=== PATIENT | female | born 1985 | race Caucasian/White ===

== ENCOUNTER → 2018-05-22 | Outpatient (CLI) | payer OTHER ==
--- NOTE | 2018-05-22 13:33 | XR ---
EXAMINATION TYPE: XR hand complete RT DATE OF EXAM: 05/22/2018 COMPARISON: NONE HISTORY: Pain TECHNIQUE: Three views are submitted. FINDINGS: The osseous structures are intact. The joint spaces are preserved and there is no acute fracture or dislocation. Soft tissue injury involving the third digit IMPRESSION: 1. No definite acute fracture or dislocation if symptoms persist, follow-up study in 7 to 10 days wo uld be suggested
== END | disposition home or self-care (01) ==
LOC: RADXRMAIN 13:08
PROVIDERS: ATTEND Emergency Medicine
DX: S67.192A Crushing injury of right middle finger, initial encounter (principal)

== ENCOUNTER → 2023-04-12 | Outpatient (CLI) | payer OTHER ==
--- NOTE | 2023-04-22 22:15 | MR ---
EXAMINATION TYPE: MR shoulder RT wo con DATE OF EXAM: 04/12/2023 COMPARISON: Radiographs 03/16/2023 HISTORY: 37-year-old female, M25.511, with right shoulder pain, Severe pain if moves shoulder TECHNIQUE: Multiplanar, multisequence imaging of the right shoulder is performed without contrast. FINDINGS: Nonvisualization of the long head biceps tendon. Likely chronically torn. There appears to be tear of the superior half fibers of the subscapularis tendon. Suspect postsurgical finding at the AC joint. Additional susceptibility artifact relating to the prio r acromioplasty. Numerous suture anchors within the humeral head. There is a kallie through thickness tear of the entir e supraspinatus tendon. Tear extends into the anterior infraspinatus tendon. Posterior infraspinatus tendon fibers remain intact. Stump retraction by up to 4 cm nearly to the level of the glenohumeral j oint. Minimal fatty streaks within both supraspinatus and infraspinatus muscle bellies without any signific ant muscle volume loss. There is a moderate to large glenohumeral joint effusion contiguous with the subacromial/subdeltoid b ursa. No discrete labral tear given nonarthrographic technique. Overall clinical joint articular cartilage appears maintained. No Hill-Sachs deformity or os acromiale. Patchy red marrow hyperplasia may be due to patient's age, anemia, obesity. IMPRESSION: 1. Prior repair but with a large rotator cuff re-tear involving the entire supraspinatus tendon exten ding into the anterior infraspinatus tendon. Stump retracted by 4 cm nearly to the level of the gleno humeral joint. Posterior infraspinatus tendon fibers remain intact. 2. The superior half fibers of the subscapularis tendon are suspected to be torn as well. 3. Minimal fatty streaks within both supraspinatus and infraspinatus muscle bellies without significa nt muscle volume loss. 4. Nonvisualization of the long head biceps tendon, likely chronically torn. 5. Suspect postsurgical widening at the AC joint. Additional foci of susceptibility artifact likely r elating to prior acromioplasty. 6. Moderate to large joint effusion communicating with the bursa.
== END | disposition home or self-care (01) ==
LOC: RADMRIMAIN 16:07
PROVIDERS: ATTEND Orthopaedic Surgery
DX: M75.101 Unspecified rotator cuff tear or rupture of right shoulder, not specified as traumatic (principal); M25.411 Effusion, right shoulder

== ENCOUNTER 2023-09-09 17:39 | Emergency (ER) | payer BC, OTHER ==
--- NOTE | 2023-09-09 17:55 | ED ---
General Adult HPI - General Source: patient, RN notes reviewed Mode of arrival: ambulatory Limitations: no limitations <Joselin Brown - Last Filed: 09/09/23 17:54> <Igor Baxter - Last Filed: 09/10/23 22:50> - General Chief complaint: Vaginal Bleeding Stated complaint: Vaginal Bleeding,Shaky - History of Present Illness Initial comments: 37-year-old female presents emergency Department with chief complaint of lower abdominal pain 3 days. She also admits to vaginal bleeding since [id number]. She reports that it has been on-and-off since this time sometimes light and other times heavier. (Joselin Brown) 37-year-old female presenting with chief complaint of cramping and vaginal bleeding. Patient states that she was recently diagnosed with HPV type XVI after a routine Pap smear by her PCP. Patient had her regular period, and since then she has had irregular bleeding which ranges in intensity as well as intermittent cramping. No purulent discharge. No fevers or chills. No nausea or vomiting. No diarrhea, hematochezia, melena. No dysuria or flank pain. (Igor Baxter) - Related Data Home Medications Medication Instructions Recorded Confirmed HYDROcodone/APAP 10-325MG [[place] 1 tab PO TID PRN 03/05/14 08/02/16 10-325] tiZANidine [Zanaflex] 4 mg PO TID 03/05/14 08/02/16 Aspirin/Acetaminophen/Caffeine 1 tab PO Q6H PRN 08/02/16 08/02/16 [Excedrin Extra Strength Caplet] Ibuprofen [Motrin] 800 mg PO Q6HR PRN 08/02/16 08/02/16 Allergies Allergy/AdvReac Type Severity Reaction Status Date / Time prochlorperazine Allergy Intermediate Unknown Verified 08/02/16 23:39 [From Compazine] erythromycin base Allergy Dyspnea Verified 08/02/16 23:39 [From E-Mycin] Penicillins Allergy Nausea & Verified 08/02/16 23:39 Vomiting trazodone Allergy Dyspnea Verified 08/02/16 23:39 prednisone AdvReac Vomiting Verified 08/02/16 23:39 Review of Systems ROS Other: All systems not noted in ROS Statement are negative. <Joselin Brown - Last Filed: 09/09/23 17:54> ROS Other: All systems not noted in ROS Statement are negative. <Igor Baxter - Last Filed: 09/10/23 22:50> ROS Statement: Those systems with pertinent positive or pertinent negative responses have been documented in the HPI. Past Medical History Past Medical History: No Reported History Additional Past Medical History / Comment(s): ovarian cyst, back pain History of Any Multi-Drug Resistant Organisms: None Reported Past Surgical History: Ear Surgery, Tonsillectomy, Tubal Ligation Additional Past Surgical History / Comment(s): rectal surgery, christie knee, rt shoulder , CARPAL TUNNEL Past Psychological History: Anxiety, Depression Smoking Status: Current every day smoker Past Alcohol Use History: Occasional Past Drug Use History: None Reported <Joselin Brown - Last Filed: 09/09/23 17:54> General Exam Limitations: no limitations <Joselin Brown - Last Filed: 09/09/23 17:54> Limitations: no limitations General appearance: alert, in no apparent distress Head exam: Present: atraumatic, normocephalic, normal inspection Eye exam: Present: normal appearance, EOMI Neck exam: Present: normal inspection, full ROM Respiratory exam: Present: normal lung sounds bilaterally. Absent: respiratory distress, wheezes, rales, rhonchi, stridor Cardiovascular Exam: Present: regular rate, normal rhythm, normal heart sounds. Absent: systolic murmur, diastolic murmur, rubs, gallop, clicks GI/Abdominal exam: Present: soft, tenderness (Pelvic). Absent: distended, gua rding, rebound, rigid Neurological exam: Present: alert, oriented X3 Psychiatric exam: Present: normal affect, normal mood Skin exam: Present: warm, dry, intact, normal color. Absent: rash <Igor Baxter - Last Filed: 09/10/23 22:50> - General Exam Comments Initial Comments: Visual Physical Exam Vital signs reviewed General: Well-appearing, nontoxic, no acute distress. Head: Normocephalic, atraumatic Eyes: PERRLA, EOMI ENT: Airway patent Chest: Nonlabored breathing Skin: No visual rash, normal skin tone Neuro: Alert and oriented 3 Musculoskeletal: No gross abnormalities (Joselin Brown) Course Vital Signs 09/09/23 09/09/2309/09/23 17:43 20:09 20:59 Temperature 98.6 F Pulse Rate 107 H 69 79 Respiratory 18 18 18 Rate Blood Pressure 128/89 131/100 126/84 O2 Sat by Pulse 98 98 100 Oximetry Medical Decision Making <Joselin Brown - Last Filed: 09/09/23 17:54> - Lab Data Result diagrams: 09/09/23 17:50 09/09/23 17:50 <Igor Baxter - Last Filed: 09/10/23 22:50> - Medical Decision Making Quick note performed by Joselin Brown PA-C (Joselin Brown) Was pt. sent in by a medical professional or institution (YOMAIRA Peterson, DISTILLERY WORKER, urgent care, hospital, or correction...) When possible be specific @ -No Did you speak to anyone other than the patient for history (EMS, parent, family, police, friend...)? What history was obtained from this source @ -No Did you review nursing and triage notes (agree or disagree)? Why? @ -I reviewed and agree with nursing and triage notes Were old charts reviewed (outside hosp., previous admission, EMS record, old EKG, old radiological studies, urgent care reports/EKG's, correction records)? Report findings @ -No old charts were reviewed Differential Diagnosis (chest pain, altered mental status, abdominal pain women, abdominal pain men, vaginal bleeding, weakness, fever, dyspnea, syncope, headache, dizziness, GI bleed, back pain, seizure, CVA, palpatations, mental health, musculoskeletal)? @ -[facility] Differential Abdominal Pain Women: Appendicitis, Cholecystitis, diverticulosis, ischemic bowel, pancreatitis, hepatitis, UTI, gastroenteritis, AAA, incarcerated hernia, bowel obstruction, constipation, inflammatory bowel, hepatitis, peptic ulcer disease, splenic infarction, perforated viscus, vulvitis, ovarian torsion, PID, kidney stone, placenta abruption... This is not meant to be an all-inclusive list EKG interpreted by me (3pts min.). @ -As above X-rays interpreted by me (1pt min.). @ -None done CT interpreted by me (1pt min.). @ -None done U/S interpreted by me (1pt. min.). @ -Heterogenous uterus was 3 mm endometrial stripe. Right ovary shows likely follicular changes with dominant involuting follicle. Preserved color Doppler flow was appropriate vascular waveforms demonstrated to the right ovary at the time of the exam, no sonographic evidence to suggest torsion at this time. Obscuration of the left ovary and bilateral adnexa due to bowel gas What testing was considered but not performed or refused? (CT, X-rays, U/S, labs)? Why? @ -None What meds were considered but not given or refused? Why? @ -None Did you discuss the management of the patient with other professionals (professionals i.e. , PA, DISTILLERY WORKER, lab, RT, psych nurse, social group worker, teaching specialists, teacher, disabilities services officer, human services case manager)? Give summary @ -No Was smoking cessation discussed for >3mins.? @ -No Was critical care preformed (if so, how long)? @ -No Were there social determinants of health that impacted care today? How? (Homelessness, low income, unemployed, alcoholism, drug addiction, transportation, low edu. Level, literacy, decrease access to med. care, [facility], rehab)? @ -No Was there de-escalation of care discussed even if they declined (Discuss DNR or withdrawal of care, Hospice)? DNR status @ -No What co-morbidities impacted this encounter? (DM, HTN, Smoking, COPD, CAD, Cancer, CVA, ARF, Chemo, Hep., AIDS, mental health diagnosis, sleep apnea, morbid obesity)? @ -None Was patient admitted / discharged? Hospital course, mention meds given and route, prescriptions, significant lab abnormalities, going to OR and other pertinent info. @ -37-year-old female presenting with chief complaint of intermittent pelvic cramping and vaginal bleeding. Recently diagnosed with HPV type XVI. History and physical exam were conducted. There is some tenderness to the lower abdomen. Ultrasound shows no evidence of torsion and heterogenous appearance of the uterus. Right-sided ovarian cyst. Urine shows signs of contamination with negative hCG. Glucose 72. Patient is given pain medication, on reassessment she reports resolution of her symptoms. She would like to be discharged. She is instructed to follow-up with MH TEACHER. Follow-up with PCP. Report back to ER with any new or worsening symptoms. Discussed return parameters and answered al l questions. Patient conveyed verbal understanding and agreed to the plan. I discussed this case in detail with my attending Dr. Rosen Undiagnosed new problem with uncertain prognosis? @ -No Drug Therapy requiring intensive monitoring for toxicity (Heparin, Nitro, Insulin, Cardizem)? @ -No Were any procedures done? @ -No Diagnosis/symptom? @ -Ovarian cyst Acute, or Chronic, or Acute on Chronic? @ -Acute Uncomplicated (without systemic symptoms) or Complicated (systemic symptoms)? @ -Uncomplicated Side effects of treatment? @ -No Exacerbation, Progression, or Severe Exacerbation? @ -No (Igor Baxter) - Lab Data Lab Results 09/09/23 09/09/23 09/09/23 Range/Units 17:50 17:50 17:50 WBC 7.9 (3.8-10.6) k/uL RBC 5.12 (3.80-5.40) m/uL Hgb 15.0 (11.4-16.0) gm/dL Hct 45.0 (34.0-46.0) % MCV 87.9 (80.0-100.0) fL MCH 29.3 (25.0-35.0) pg MCHC 33.3 (31.0-37.0) g/dL RDW 12.9 (11.5-15.5) % Plt Count 319 (150-450) k/uL MPV 7.8 Neutrophils % 45 % Lymphocytes % 43 % Monocytes % 7 % Eosinophils % 3 % Basophils % 1 % Neutrophils # 3.6 (1.3-7.7) k/uL Lymphocytes # 3.4 (1.0-4.8) k/uL Monocytes # 0.5 (0-1.0) k/uL Eosinophils # 0.2 (0-0.7) k/uL Basophils # 0.1 (0-0.2) k/uL Sodium (137-145) mmol/L Potassium (3.5-5.1) mmol/L Chloride (98-107) mmol/L Carbon Dioxide (22-30) mmol/L Anion Gap mmol/L BUN (7-17) mg/dL Creatinine (0.52-1.04) mg/dL Est GFR (CKD-EPI)AfAm (>60 ml/min/1.73 sqM) Est GFR (CKD-EPI)NonAf (>60 ml/min/1.73 sqM) Glucose (74-99) mg/dL Calcium (8.4-10.2) mg/dL Total Bilirubin (0.2-1.3) mg/dL AST (14-36) U/L ALT (4-34) U/L Alkaline Phosphatase (38-126) U/L Total Protein (6.3-8.2) g/dL Albumin (3.5-5.0) g/dL Urine Color Dark Yellow Urine Appearance Slightly Cloudy H (Clear) Urine pH 7.0 (5.0-8.0) Ur Specific [place] 1.020 (1.001-1.035) Urine Protein 1+ H (Negative) Urine Glucose (UA) Negative (Negative) Urine Ketones Negative (Negative) Urine Blood Moderate H (Negative) Urine Nitrite Negative (Negative) Urine Bilirubin Negative (Negative) Urine Urobilinogen 2.0 (<2.0) mg/dL Ur Leukocyte Esterase Trace H (Negative) Urine RBC 3 (0-5) /hpf Urine WBC 17 H (0-5) /hpf Ur Squamous Epith Cells 24 H (0-4) /hpf Amorphous Sediment Occasional H (None) /hpf Urine Bacteria Few H (None) /hpf Hyaline Casts 12 H (0-2) /lpf Urine Mucus Rare H (None) /hpf Urine HCG, Qual Not Detected (Not Detectd) 09/09/23 Range/Units 17:50 WBC (3.8-10.6) k/uL RBC (3.80-5.40) m/uL Hgb (11.4-16.0) gm/dL Hct (34.0-46.0) % MCV (80.0-100.0) fL MCH (25.0-35.0) pg MCHC (31.0-37.0) g/dL RDW (11.5-15.5) % Plt Count (150-450) k/uL MPV Neutrophils % % Lymphocytes % % Monocytes % % Eosinophils % % Basophils % % Neutrophils # (1.3-7.7) k/uL Lymphocytes # (1.0-4.8) k/uL Monocytes # (0-1.0) k/uL Eosinophils # (0-0.7) k/uL Basophils # (0-0.2) k/uL Sodium 139 (137-145) mmol/L Potassium 3.8 (3.5-5.1) mmol/L Chloride 104 (98-107) mmol/L Carbon Dioxide 24 (22-30) mmol/L Anion Gap 11 mmol/L BUN 9 (7-17) mg/dL Creatinine 0.73 (0.52-1.04) mg/dL Est GFR (CKD-EPI)AfAm >90 (>60 ml/min/1.73 sqM) Est GFR (CKD-EPI)NonAf >90 (>60 ml/min/1.73 sqM) Glucose 72 L (74-99) mg/dL Calcium 9.1 (8.4-10.2) mg/dL Total Bilirubin 0.3 (0.2-1.3) mg/dL AST 23 (14-36) U/L ALT 23 (4-34) U/L Alkaline Phosphatase 77 (38-126) U/L Total Protein 7.4 (6.3-8.2) g/dL Albumin 4.6 (3.5-5.0) g/dL Urine Color Urine Appearance (Clear) Urine pH (5.0-8.0) Ur Specific [place] (1.001-1.035) Urine Protein (Negative) Urine Glucose (UA) (Negative) Urine Ketones (Negative) Urine Blood (Negative) Urine Nitrite (Negative) Urine Bilirubin (Negative) Urine Urobilinogen (<2.0) mg/dL Ur Leukocyte Esterase (Negative) Urine RBC (0-5) /hpf Urine WBC (0-5) /hpf Ur Squamous Epith Cells (0-4) /hpf Amorphous Sediment (None) /hpf Urine Bacteria (None) /hpf Hyaline Casts (0-2) /lpf Urine Mucus (None) /hpf Urine HCG, Qual (Not Detectd) Disposition <Joselin Brown - Last Filed: 09/09/23 17:54> Is patient prescribed a controlled substance at d/c from ED?: No Time of Disposition: 20:46 <Igor Baxter - Last Filed: 09/10/23 22:50> Clinical Impression: Ovarian cyst Disposition: HOME SELF-CARE Condition: Good Instructions (If sedation given, give patient instructions): Ovarian Cyst (ED) Additional Instructions: Follow up with MH TEACHER. Report back to ER with any new or worsening symptoms. Referrals: Nonstaff,Physician [Primary Care Provider] - 1-2 days Tamra Matthew DO [Doctor of Osteopathic Medicine] - 1-2 days
[2023-09-09 18:02] VITALS: RESP 18; TEMP 98.6
[2023-09-09 19:27] LABS: Basophils # (A) 0.1 k/uL (0-0.2); Basophils % (A) 1 %; Eosinophils # (A) 0.2 k/uL (0-0.7); Eosinophils % (A) 3 %; Lymphocytes # (A) 3.4 k/uL (1.0-4.8); Lymphocytes % (A) 43 %; MCH 29.3 pg (25.0-35.0); MCHC 33.3 g/dL (31.0-37.0); MCV 87.9 fL (80.0-100.0); Mean Platelet Volume 7.8; Monocytes # (A) 0.5 k/uL (0-1.0); Monocytes % (A) 7 %; Neutrophils # (A) 3.6 k/uL (1.3-7.7); Neutrophils % (A) 45 %; Platelet Count 319 k/uL (150-450); RBC 5.12 m/uL (3.80-5.40); RDW 12.9 % (11.5-15.5); WBC 7.9 k/uL (3.8-10.6)
[2023-09-09 19:36] LABS: ALT 23 U/L (4-34); AST 23 U/L (14-36); African American GFR (CKD) >90 (>60 ml/min/1.73 sqM); Albumin 4.6 g/dL (3.5-5.0); Alkaline Phosphatase 77 U/L (38-126); Anion Gap 11 mmol/L; Blood Urea Nitrogen 9 mg/dL (7-17); Calcium 9.1 mg/dL (8.4-10.2); Carbon Dioxide 24 mmol/L (22-30); Chloride 104 mmol/L (98-107); Glucose 72 mg/dL (74-99); Non-African American GFR(CKD) >90 (>60 ml/min/1.73 sqM); Potassium 3.8 mmol/L (3.5-5.1); Sodium 139 mmol/L (137-145); Total Bilirubin 0.3 mg/dL (0.2-1.3); Total Protein 7.4 g/dL (6.3-8.2)
[2023-09-09] MEDS ORDERED: MORPHINE SULFATE 4 MG/ML SYRINGE IVP STA (19:46)
[2023-09-09] MEDS ORDERED: KETOROLAC 15 MG/ML 1 ML VIAL IVP STA (19:46)
[2023-09-09 20:00] LABS: Amorphous Sediment,Urine Occasional /hpf; Bacteria,Urine Few /hpf; Hyaline Casts,Urine 12 /lpf (0-2); Mucus,Urine Rare /hpf; RBC,Urine 3 /hpf (0-5); Squamous Epithelial Cell,Urine 24 /hpf (0-4); WBC,Urine 17 /hpf (0-5)
[2023-09-09 20:06] LABS: Color,Urine Dark Yellow
[2023-09-09 20:07] LABS: Appearance,Urine Slightly Cloudy (Clear); Bilirubin,Urine Negative (Negative); Blood,Urine Moderate (Negative); Glucose,Urine (UA) Negative (Negative); Ketones,Urine Negative (Negative); Protein,Urine 1+ (Negative)
[2023-09-09 20:08] LABS: Leukocyte Esterase,Urine Trace (Negative); Nitrite,Urine Negative (Negative)
--- NOTE | 2023-09-09 20:30 | US ---
EXAMINATION TYPE: US pelvic complete transvag DATE OF EXAM: 09/09/2023 COMPARISON: NONE CLINICAL INDICATION: Female, 37 years old with history of AUB; recent hpv diagnosis, pelvic pain and bleeding on and off since 09/06 TECHNIQUE: Transvaginal (TV). Transabdominal sonographic images of the pelvis were acquired. Trans vaginal sonographic images were medically necessary to better assess the following anatomy: Ovaries. Color Doppler with spectral waveform analysis was also performed of the right ovary. Date of LMP: 09/03/23 EXAM MEASUREMENTS: Exam limited by bowel gas and patient pain. Uterus: 8.3x4.3x4.1 cm Endometrial Stripe: 0.9 cm Right Ovary: 3.6x2.6x2.7 cm Left Ovary: obscured by bowel 1. Uterus: Anteverted heterogenous, nabothian cysts noted at cervix 2. Endometrium: wnl 3. Right Ovary: anechoic area measures 2.4x1.7x1.6cm with small adjacent cysts suggested, likely fol licular changes with dominant involuting follicle. 4. Left Ovary: Obscured by overlying bowel gas Spectral, color and waveform doppler imaging shows good arterial and venous flow within the right o vary; there is no evidence for right ovarian torsion. 5. Bilateral Adnexa: Obscured by overlying bowel gas 6. Posterior cul-de-sac: wnl IMPRESSION: 1. Heterogeneous uterus with 9 mm endometrial stripe. 2. Right ovary shows likely follicular changes with dominant involuting follicle. Preserved color D oppler flow with appropriate vascular waveforms demonstrated to the right ovary at the time of the ex am, no sonographic evidence to suggest torsion at this time. 3. Obscuration of the left ovary and bilateral adnexa due to bowel gas.
[2023-09-09 21:14] VITALS: BP 126/84; PULSE 79
== END 2023-09-09 21:01 | disposition home or self-care (01) ==
LOC: EC 17:39
DX: N83.201 Unspecified ovarian cyst, right side (principal); F17.200 Nicotine dependence, unspecified, uncomplicated; Z79.82 Long term (current) use of aspirin; Z86.59 Personal history of other mental and behavioral disorders; Z88.0 Allergy status to penicillin; Z88.8 Allergy status to other drugs, medicaments and biological substances
CPT/HCPCS: 36415; 80053; 85025; 81001; 81025; 93976; 76856; 76830; 99284; 96374; 96375; J2270; J1885

== ENCOUNTER → 2024-01-17 | Outpatient (CLI) | payer OTHER ==
--- NOTE | 2024-01-19 06:22 | MR ---
EXAMINATION TYPE: MR shoulder RT wo con DATE OF EXAM: 01/17/2024 COMPARISON: Prior MRI April 12, 2023 HISTORY: Right shoulder pain, prior surgery. TECHNIQUE: Multiplanar, multisequence imaging of the right shoulder is performed without contrast. FINDINGS: Rotator Cuff: Full thickness retracted tear of the supraspinatus tendon despite surgical repair to th e level of the distal clavicle is redemonstrated. Slight tearing of the anterior fibers of the infras pinatus tendon redemonstrated. Mild muscular atrophy of the supraspinatus redemonstrated. Chronic tea r superior fibers of the subscapularis tendon redemonstrated. Acromioclavicular Joint: Extensive susceptibility artifact from prior surgical change at this level a gain seen. Glenohumeral Joint: Persistent moderate to large size joint effusion. Susceptibility artifact from pr ior rotator cuff surgery repair redemonstrated. Narrowing again seen. No significant spurring. Labrum: The labrum appears grossly intact given limitation of non-arthrogram study. Biceps Tendon: Nonvisualized long head of biceps is once again noted. Bone marrow signal: Overall heterogeneity redemonstrated. Other: No additional significant abnormality is appreciated. IMPRESSION: No significant change from prior MRI. Full-thickness retracted tear of the surgically repaired supras pinatus tendon redemonstrated extending into the anterior fibers of the infraspinatus tendon. Chronic tear of the superior fibers of the subscapularis tendon. Prior surgical change to acromioclavicular joint also redemonstrated. Chronic tear of the long head of biceps tendon noted.
== END | disposition home or self-care (01) ==
LOC: RADMRIMAIN 05:35
PROVIDERS: ATTEND Orthopaedic Surgery
DX: M75.121 Complete rotator cuff tear or rupture of right shoulder, not specified as traumatic (principal)

== ENCOUNTER 2024-07-18 12:30 | Emergency (ER) | payer OTHER ==
[2024-07-18 13:22] VITALS: TEMP 98.1
--- NOTE | 2024-07-18 13:47 | ED ---
General Adult HPI - General Chief complaint: Recheck/Abnormal Lab/Rx Stated complaint: R Breast Pain Time Seen by Provider: 07/18/24 12:47 Source: patient, RN notes reviewed Mode of arrival: ambulatory Limitations: no limitations - History of Present Illness Initial comments: This is a 38-year-old female presenting for mass found on self-examination on right breast yesterday. Patient states pain started earlier today. Patient denies color or skin changes over mass, recent localized trauma, discharge from mass or nipple, nocturnal sweating or abnormal weight loss. Onset/Timin -: days(s) Location: chest - Related Data Home Medications Medication Instructions Recorded Confirmed HYDROcodone/APAP 10-325MG [[place] 1 tab PO TID PRN 03/05/14 08/02/16 10-325] tiZANidine [Zanaflex] 4 mg PO TID 03/05/14 08/02/16 Aspirin/Acetaminophen/Caffeine 1 tab PO Q6H PRN 08/02/16 08/02/16 [Excedrin Extra Strength Caplet] Ibuprofen [Motrin] 800 mg PO Q6HR PRN 08/02/16 08/02/16 Allergies Allergy/AdvReac Type Severity Reaction Status Date / Time prochlorperazine Allergy Intermediate Unknown Verified 08/02/16 23:39 [From Compazine] erythromycin base Allergy Dyspnea Verified 08/02/16 23:39 [From E-Mycin] Penicillins Allergy Nausea & Verified 08/02/16 23:39 Vomiting sumatriptan [From Imitrex] Allergy Rapid Verified 07/18/24 13:23 Heart Rate trazodone Allergy Dyspnea Verified 08/02/16 23:39 prednisone AdvReac Vomiting Verified 08/02/16 23:39 Review of Systems ROS Statement: Those systems with pertinent positive or pertinent negative responses have been documented in the HPI. ROS Other: All systems not noted in ROS Statement are negative. Past Medical History Past Medical History: No Reported History Additional Past Medical History / Comment(s): ovarian cyst, back pain History of Any Multi-Drug Resistant Organisms: None Reported Past Surgical History: Ear Surgery, Tonsillectomy, Tubal Ligation Additional Past Surgical History / Comment(s): rectal surgery, christie knee, Rt shoulder 5 surgeries, CARPAL TUNNEL Past Psychological History: ADD/ADHD, Anxiety, Bipolar, Depression Smoking Status: Current every day smoker, Vaper Past Alcohol Use History: None Reported Past Drug Use History: None Reported General Exam Limitations: no limitations General appearance: alert, in no apparent distress Head exam: Present: atraumatic, normocephalic, normal inspection Eye exam: Present: normal appearance, PERRL, EOMI. Absent: scleral icterus, conjunctival injection, periorbital swelling ENT exam: Present: normal exam, mucous membranes moist Neck exam: Present: normal inspection. Absent: tenderness, meningismus, lymphadenopathy Respiratory exam: Present: normal lung sounds bilaterally. Absent: respiratory distress, wheezes, rales, rhonchi, stridor Cardiovascular Exam: Present: regular rate, normal rhythm, normal heart sounds. Absent: systolic murmur, diastolic murmur, rubs, gallop, clicks GI/Abdominal exam: Present: soft, normal bowel sounds. Absent: distended, tenderness, guarding, rebound, rigid Extremities exam: Present: normal inspection, full ROM, normal capillary refill. Absent: tenderness, pedal edema, joint swelling, calf tenderness Back exam: Present: normal inspection Neurological exam: Present: alert, oriented X3, CN II-XII intact Psychiatric exam: Present: normal affect, normal mood Skin exam: Present: warm, dry, intact, normal color, other (+5 x 5 cm hard yet fluctuant mass noted at the 10 o'clock position of right periareolar region. Negative overlying erythema, skin changes, discharge from mass or nipple. Negative sternal or right axillary lymphadenopathy). Absent: rash Course Vital Signs 07/18/24 07/18/24 13:16 16:24 Temperature 98.1 F 98.1 F Pulse Rate 73 72 Respiratory 1 L 18 Rate Blood Pressure 111/64 135/71 O2 Sat by Pulse 98 99 Oximetry Medical Decision Making - Medical Decision Making Was pt. sent in by a medical professional or institution (, PA, SUPERVISOR TYPE DISK QUALITY CONTROL, urgent care, hospital, or long term...) When possible be specific @ -No Did you speak to anyone other than the patient for history (EMS, parent, family, police, friend...)? What history was obtained from this source @ -No Did you review nursing and triage notes (agree or disagree)? Why? @ -I reviewed and agree with nursing and triage notes Were old charts reviewed (outside hosp., previous admission, EMS record, old EKG, old radiological studies, urgent care reports/EKG's, long term records)? Report findings @ -No old charts were reviewed Differential Diagnosis (chest pain, altered mental status, abdominal pain women, abdominal pain men, vaginal bleeding, weakness, fever, dyspnea, syncope, headache, dizziness, GI bleed, back pain, seizure, CVA, palpatations, mental health, musculoskeletal)? @ - cyst, periareolar abscess, ductal carcinoma in situ, localized edema EKG interpreted by me (3pts min.). @ -Not done X-rays interpreted by me (1pt min.). @ -None done CT interpreted by me (1pt min.). @ -None done U/S interpreted by me (1pt. min.). @ -Ultrasound discovered benign cyst with no other concerning findings. What testing was considered but not performed or refused? (CT, X-rays, U/S, labs)? Why? @ -None What meds were considered but not given or refused? Why? @ -None Did you discuss the management of the patient with other professionals (professionals i.e. , PA, SUPERVISOR TYPE DISK QUALITY CONTROL, lab, RT, psych nurse, health social work professor, senior power scheduler, teacher, student officer, lining caser)? Give summary @ -No Was smoking cessation discussed for >3mins.? @ -No Was critical care preformed (if so, how long)? @ -No Were there social determinants of health that impacted care today? How? (Homelessness, low income, unemployed, alcoholism, drug addiction, transportation, low edu. Level, literacy, decrease access to med. care, fpc, rehab)? @ -No Was there de-escalation of care discussed even if they declined (Discuss DNR or withdrawal of care, Hospice)? DNR status @ -No What co-morbidities impacted this encounter? (DM, HTN, Smoking, COPD, CAD, Cancer, CVA, ARF, Chemo, Hep., AIDS, mental health diagnosis, sleep apnea, morbid obesity)? @ -None Was patient admitted / discharged? Hospital course, mention meds given and route, prescriptions, significant lab abnormalities, going to OR and other pertinent info. @ -Discharge. Ultrasound performed with benign findings. Advised follow-up with Dr. Jose F Rosen for ongoing care. Advised warm compresses and Motrin for pain as needed. Undiagnosed new problem with uncertain prognosis? @ -No Drug Therapy requiring intensive monitoring for toxicity (Heparin, Nitro, Insulin, Cardizem)? @ -No Were any procedures done? @ -No Diagnosis/symptom? @ -Benign mammary cyst Acute, or Chronic, or Acute on Chronic? @ -Acute Uncomplicated (without systemic symptoms) or Complicated (systemic symptoms)? @ -Uncomplicated Side effects of treatment? @ -No Exacerbation, Progression, or Severe Exacerbation? @ -No Poses a threat to life or bodily function? How? (Chest pain, [place], [place], pneumonia, PE, COPD, DKA, ARF, appy, cholecystitis, CVA, Diverticulitis, Homicidal, Suicidal, threat to staff... and all critical care pts) @ -No Disposition Clinical Impression: Benign breast cyst in female Disposition: HOME SELF-CARE Condition: Good Instructions (If sedation given, give patient instructions): Cyst (ED) Is patient prescribed a controlled substance at d/c from ED?: No Referrals: Raffaele Grande DO [Primary Care Provider] - 1-2 days Doris Guevara MD [STAFF PHYSICIAN] - 1-2 days Time of Disposition: 04:05
--- NOTE | 2024-07-18 14:28 | USB ---
Reason for Exam: Clinical finding. Risk Values: Edna 5 year model risk: 0.3%. NCI Lifetime model risk: 6.7%. Technique: Method: Targeted. Findings: The upper section of the breast of the right breast, the axilla of the right breast and the retroareolar of the right breast were scanned. Large cluster of cysts right 10:00 position 1 cm from the nipple measuring 4.9 x 3.6 cm.Large cluster of cysts right 10:00 position 1 cm from the nipple measuring 4.9 x 3.6 cm. No solid masses seen. Overall Assessment: Benign, BI-RAD 2 Management: Screening Mammogram of both breasts at age 39. A clinical breast exam by your physician is recommended on an annual basis and results should be correlated with mammographic findings. This exam should not preclude additional follow-up of suspicious palpable abnormalities. Results were given to the patient verbally at the time of exam. [facility], , 07/18/2024 2:24 PM. Electronically signed and approved by: Margarito Quevedo M.D. Radiologis
[2024-07-18 16:25] VITALS: BP 135/71; PULSE 72; RESP 18
== END 2024-07-18 16:25 | disposition home or self-care (01) ==
LOC: EC 12:30
CPT/HCPCS: 99283

== ENCOUNTER → 2024-08-30 | Outpatient (CLI) | payer OTHER ==
[2024-08-30 08:18] VITALS: BP 107/75; PULSE 74; RESP 17; TEMP 97.9
--- NOTE | 2024-08-30 09:02 | P.GSCN ---
History of Present Illness Consult date: 08/30/24 Reason for Consult: cyst right breast History of present illness: Vanessa is a 38 year old female seen in consultation for right breast pain. She was seen in the ER on 07-18-24 and an ultrasound of the right breast showed a cystic cluster in the 10:00 position. It was 4.9 by 3.6 cm BIRAD 2, personally reviewed and interpreted. On 07-18-24 right breast in the upper outer quadrant area. Therefore she went to the emergency room. The area is tender if it is not supported by her bra. Is not complaining of any other lumps masses or nodules of concern in either breast. Not complaining of any other breast pain. Not had any surgery on either breast. She has not had any recent trauma or infection in the breast. She is not complaining of any nipple discharge or skin changes of the breast. Her last period was August 23, 2024. They are regular, they do not affect her breast. Caffeine: energy drinks/ 2 cans/day nicotine: vapes 25,000 hits /month, she is around second hand smoke, stopped smoking in 2022 used to smoke 1/2 PPD for 32 years chocolate: none BCP: 1 year, DEPO shot 2 years, tubaligation 17 years hormone: none Family History: maternal 1/2 aunt breast and bone cancer at 32 Hormonal History: menarche: 7 M2 age at first live : 18, breast fed: no periods regular LMP August 23, 2024 Surgical history: Anal reconstruction Tubes in her ear/tonsillectomy Ovarian cyst Tubal ligation bilateral knee scopes 5 surgeries rotator cull right shoulder bilateral carpel tunnel teeth extracted Medical History: bipolar depression anxiety panic attacks sleeping GERD migraine back pain Social History: nicotine: as above alcohol: once a year drugs: none Review of Systems - Constitutional Denies fever, Denies weight loss - EENT Eyes: denies blurred vision Ears: bilateral: tinnitus Ears, nose, mouth and throat: Reports headache - Breasts bilateral: as per HPI - Cardiovascular Denies chest pain, Denies shortness of breath - Respiratory Denies cough, Denies 7 - Gastrointestinal Reports as per HPI, Reports constipation - Genitourinary Genitourinary: Denies dysuria, Denies hematuria Menstruation: Reports period normal - Musculoskeletal Reports as per HPI - Integumentary Denies rash, Denies unusual bruising - Neurological Reports headaches, Denies syncope - Psychiatric Reports as per HPI, Reports anxiety, Reports depression - Endocrine Reports as per HPI - Hematologic/Lymphatic Denies easy bleeding, Denies easy bruising - Allergic/Immunologic Reports as per HPI, Reports seasonal allergies Past Medical History Past Medical History: No Reported History Additional Past Medical History / Comment(s): ovarian cyst, back pain History of Any Multi-Drug Resistant Organisms: None Reported Past Surgical History: Ear Surgery, Tonsillectomy, Tubal Ligation Additional Past Surgical History / Comment(s): rectal surgery, christie knee, Rt shoulder 5 surgeries, CARPAL TUNNEL Past Psychological History: ADD/ADHD, Anxiety, Bipolar, Depression Smoking Status: Current every day smoker, Vaper Past Alcohol Use History: None Reported Past Drug Use History: None Reported Medications and Allergies Home Medications Medication Instructions Recorded Confirmed Type HYDROcodone/APAP 10-325MG [[place] 1 tab PO TID PRN 03/05/14 08/30/24 History 10-325] tiZANidine [Zanaflex] 4 mg PO TID 03/05/14 08/30/24 History Aspirin/Acetaminophen/Caffeine 1 tab PO Q6H PRN 08/02/16 08/30/24 History [Excedrin Extra Strength Caplet] Ibuprofen [Motrin] 800 mg PO Q6HR PRN 08/02/16 08/30/24 History Allergies Allergy/AdvReac Type Severity Reaction Status Date / Time prochlorperazine Allergy Intermediate Unknown Verified 08/30/24 08:14 [From Compazine] erythromycin base Allergy Dyspnea Verified 08/30/24 08:14 [From E-Mycin] Penicillins Allergy Nausea & Verified 08/30/24 08:14 Vomiting sumatriptan [From Imitrex] Allergy Rapid Verified 08/30/24 08:14 Heart Rate trazodone Allergy Dyspnea Verified 08/30/24 08:14 prednisone AdvReac Vomiting Verified 08/30/24 08:14 Surgical - Exam Vital Signs Temp Pulse Resp BP Pulse Ox 97.9 F 74 17 107/75 95 08/30/24 08:14 08/30/24 08:14 08/30/24 08:14 08/30/24 08:14 08/30/24 08:14 - General moderate distress - Eyes normal ocular movement - Neck trachea midline - Respiratory normal respiratory effort, clear to auscultation - Cardiovascular Rhythm: regular Heart Sounds: normal: S1, S2 - Integumentary multiple tattoos - Neurologic no disoriented, no combative - Psychiatric oriented to time, oriented to person, oriented to place, speech is normal, memory intact Breast Exam: BRA: 38C Inspection: bilateral grade 2/3 ptosis palpation: right breast: 8 x 5 cm fullness at the 10 o'clock position periareolar region, fibrocystic changes no other dominant masses or nodules of concern Right axilla: No adenopathy of concern Left breast: Fibrocystic changes, no dominant masses or nodules of concern Left axilla: No adenopathy of concern Results Ultrasound personally reviewed from 07-18-2024 cystic lesion 10 o'clock position right breast Assessment and Plan Assessment: Inspection: Fibrocystic changes bilateral breast Cystic lesion right breast 10:00 painful palpable Plan: Aspiration cyst right breast Patient encouraged to stop vaping Lifestyle modification stop caffeinated products This is discussed with the patient. Follow-up in 2 weeks Follow-up sooner any questions or concerns Following informed consent the area of concern in the right breast was prepped using alcohol. An 18-gauge needle and a 20 cc syringe was used to aspirate 35 cc of murky colored fluid. The fluid is sent for culture and for cytology. The patient tolerated the procedure in stable condition. CC: Dr. Grande
== END ==
LOC: WWCWWP 07:50
PROVIDERS: ATTEND Surgery
DX: N60.11 Diffuse cystic mastopathy of right breast (principal); N60.12 Diffuse cystic mastopathy of left breast; N60.01 Solitary cyst of right breast; F17.200 Nicotine dependence, unspecified, uncomplicated; Z88.0 Allergy status to penicillin; Z88.8 Allergy status to other drugs, medicaments and biological substances; Z88.1 Allergy status to other antibiotic agents
CPT/HCPCS: 87070; 87075; 87205

== ENCOUNTER → 2024-10-08 | Outpatient (CLI) | payer OTHER ==
--- NOTE | 2024-10-10 19:07 | MM ---
Reason for Exam: Screening (asymptomatic). Baseline mammogram. Patient History: Menarche at age 6. First Full-Term at age 18. Patient used Hormonal Contraceptives for 3 years. Maternal aunt had breast cancer. Last menstrual period: 09/02/2024 Risk Values: Edna 5 year model risk: 0.4%. NCI Lifetime model risk: 8.1%. Prior Study Comparison: Patient's first Mammogram. Tissue Density: The breasts are extremely dense, which lowers the sensitivity of mammography. Findings: Analyzed By CAD. The pattern is symmetrical. Benign-appearing calcifications are present bilaterally. No suspicious groups of microcalcifications, spiculated or lobular masses, architectural distortion or other secondary signs of malignancy are mammographically apparent. Overall Assessment: Benign, BI-RAD 2 Management: Screening Mammogram of both breasts in 1 year. A negative mammogram report should not preclude additional follow up of suspicious palpable abnormalities. Patient should continue monthly self breast exam. A clinical breast exam by your physician is recommended on an annual basis and results should be correlated with mammographic findings. Note on Edna scores and lifetime risk: 1. A Edna score greater than 3% is considered moderate risk. If this is the case, consider specialist referral to assess eligibility for a risk reducing agent. 2. If overall lifetime risk for the development of breast cancer is 20% or higher, the patient may qualify for future screening with alternating mammogram and breast MRI. [facility], , 10/10/2024 7:04 PM. Electronically signed and approved by: Michi Dior D.O. Radiologis
== END | disposition home or self-care (01) ==
LOC: RADMAMWWP 07:54
PROVIDERS: ATTEND Surgery
DX: Z12.31 Encounter for screening mammogram for malignant neoplasm of breast (principal); Z80.3 Family history of malignant neoplasm of breast; R92.343 Mammographic extreme density, bilateral breasts
CPT/HCPCS: 77067

== ENCOUNTER → 2024-10-10 | Outpatient (CLI) | payer OTHER ==
[2024-10-10 13:11] VITALS: BP 130/89; PULSE 73; RESP 18; TEMP 97.8
--- NOTE | 2024-10-10 13:32 | P.PN ---
Subjective Progress Note Date: 10/10/24 Principal diagnosis: mastadynia 10-10-24 Reason for Consult: cyst right breast History of present illness: Vanessa is a 38 year old female seen in consultation for right breast pain. She was seen in the ER on 07-18-24 and an ultrasound of the right breast showed a cystic cluster in the 10:00 position. It was 4.9 by 3.6 cm BIRAD 2, personally reviewed and interpreted. On 07-18-24 right breast in the upper outer quadrant area. Therefore she went to the emergency room. The area is tender if it is not supported by her bra. Is not complaining of any other lumps masses or nodules of concern in either breast. Not complaining of any other breast pain. Not had any surgery on either breast. She has not had any recent trauma or infection in the breast. She is not complaining of any nipple discharge or skin changes of the breast. Her last period was August 23, 2024. They are regular, they do not affect her breast. FNA of the breast done on 08-30-24, 35 cc of murky fluid removed; staph epidermidis cytology (-) bilateral mammogram done on 10-08-24 pending results She is not complaining of any new lumps malena or nodules of concern; bilateral mammogram doen 10-08-24 results pending Caffeine: energy drinks/ 2 cans/day nicotine: vapes 25,000 hits /month, she is around second hand smoke, stopped smoking in 2022 used to smoke 1/2 PPD for 32 years chocolate: none BCP: 1 year, DEPO shot 2 years, tubaligation 17 years hormone: none Family History: maternal 1/2 aunt breast and bone cancer at 32 Hormonal History: menarche: 7 M2 age at first live : 18, breast fed: no periods regular LMP August did not have one in September Surgical history: Anal reconstruction Tubes in her ear/tonsillectomy Ovarian cyst Tubal ligation bilateral knee scopes 5 surgeries rotator cull right shoulder bilateral carpel tunnel teeth extracted Medical History: bipolar depression anxiety panic attacks sleeping GERD migraine back pain Social History: nicotine: as above alcohol: once a year drugs: none Review of Systems - Constitutional Denies fever, Denies weight loss - EENT Eyes: denies blurred vision Ears: bilateral: tinnitus Ears, nose, mouth and throat: Reports headache - Breasts bilateral: as per HPI - Cardiovascular Denies chest pain, Denies shortness of breath - Respiratory Denies cough - Gastrointestinal Reports as per HPI, Reports constipation - Genitourinary Genitourinary: Denies dysuria, Denies hematuria Menstruation: Reports period normal - Musculoskeletal Reports as per HPI - Integumentary Denies rash, Denies unusual bruising - Neurological Reports headaches, Denies syncope - Psychiatric Reports as per HPI, Reports anxiety, Reports depression - Endocrine Reports as per HPI - Hematologic/Lymphatic Denies easy bleeding, Denies easy bruising - Allergic/Immunologic Reports as per HPI, Reports seasonal allergies Past Medical History Past Medical History: No Reported History Additional Past Medical History / Comment(s): ovarian cyst, back pain History of Any Multi-Drug Resistant Organisms: None Reported Past Surgical History: Ear Surgery, Tonsillectomy, Tubal Ligation Additional Past Surgical History / Comment(s): rectal surgery, christie knee, Rt shoulder 5 surgeries, CARPAL TUNNEL Past Psychological History: ADD/ADHD, Anxiety, Bipolar, Depression Smoking Status: Current every day smoker, Vaper Past Alcohol Use History: None Reported Past Drug Use History: None Reported Medications and Allergies Home Medications Medication Instructions Recorded Confirmed Type HYDROcodone/APAP 10-325MG [[place] 1 tab PO TID PRN 03/05/14 08/30/24 History 10-325] tiZANidine [Zanaflex] 4 mg PO TID 03/05/14 08/30/24 History Aspirin/Acetaminophen/Caffeine 1 tab PO Q6H PRN 08/02/16 08/30/24 History [Excedrin Extra Strength Caplet] Ibuprofen [Motrin] 800 mg PO Q6HR PRN 08/02/16 08/30/24 History Allergies Allergy/AdvReac Type Severity Reaction Status Date / Time prochlorperazine Allergy Intermediate Unknown Verified 08/30/24 08:14 [From Compazine] erythromycin base Allergy Dyspnea Verified 08/30/24 08:14 [From E-Mycin] Penicillins Allergy Nausea & Verified 08/30/24 08:14 Vomiting sumatriptan [From Imitrex] Allergy Rapid Verified 08/30/24 08:14 Heart Rate trazodone Allergy Dyspnea Verified 08/30/24 08:14 prednisone AdvReac Vomiting Verified 08/30/24 08:14 Objective - Vital Signs Vital signs: Vital Signs Temp 97.8 F 10/10/24 13:09 Pulse 73 10/10/24 13:09 Resp 18 10/10/24 13:09 BP 130/89 10/10/24 13:09 Pulse Ox 98 10/10/24 13:09 FiO2 Intake & Output 10/09/24 10/10/24 10/10/24 18:59 06:59 18:59 Weight 81.647 kg - Constitutional General appearance: Present: cooperative - EENT Eyes: Present: EOMI ENT: Present: hearing grossly normal - Neck Neck: Present: normal ROM - Respiratory Respiratory: bilateral: CTA - Cardiovascular Rhythm: regular Heart sounds: normal: S1, S2 - Integumentary Integumentary: Present: normal turgor - Musculoskeletal Musculoskeletal: Present: gait normal - Psychiatric Psychiatric: Present: A&O x's 3, appropriate affect, intact judgment & insight - Additional findings Additional findings: Breast Exam: BRA: 38C Inspection: bilateral grade 2/3 ptosis palpation: right breast: 4 by 5 cm fullness at the 11 o'clock position periareolar region, Right axilla: No adenopathy of concern Left breast: Fibrocystic changes, no dominant masses or nodules of concern Left axilla: No adenopathy of concern Assessment and Plan Assessment: Inspection: Fibrocystic changes bilateral breast Probable Cystic lesion right breast 11:00 nontender Plan: ultrasound right breast of area of fullness; 11:00 Patient encouraged to stop vaping Lifestyle modification stop caffeinated products This is discussed with the patient. bilateral mammogram 10-08-24 awaiting results pending follow up after ultrasound CC: Dr. Grande
== END ==
LOC: WWCWWP 12:23
PROVIDERS: ATTEND Surgery
DX: N60.11 Diffuse cystic mastopathy of right breast (principal); F17.200 Nicotine dependence, unspecified, uncomplicated; Z88.0 Allergy status to penicillin; Z88.1 Allergy status to other antibiotic agents; Z88.8 Allergy status to other drugs, medicaments and biological substances; Z80.3 Family history of malignant neoplasm of breast

== ENCOUNTER → 2024-10-31 | Outpatient (CLI) | payer OTHER ==
--- NOTE | 2024-10-31 14:16 | USB ---
Reason for Exam: Follow-up at short interval from prior study. Patient History: Menarche at age 6. First Full-Term at age 18. Patient used Hormonal Contraceptives for 3 years. Maternal aunt had breast cancer. Risk Values: Edna 5 year model risk: 0.4%. NCI Lifetime model risk: 8.1%. Technique: Method: Targeted. Prior Study Comparison: 10/08/2024 Bilateral MG screening mammo w CAD, [facility]. Findings: The lateral section of the breast of the right breast, the axilla of the right breast and the retroareolar of the right breast were scanned. Targeted ultrasound at the site of previous large cyst, 10:00 position right breast close to the nipple. Residual cyst measures 2.8 x 2.6 x 2.1 cm. This is in comparison to 4.9 x 4.7 x 3.6 cm back on 07/18/2024. Surrounding dense tissue is present. No axillary adenopathy. The mammogram can be reassessed in 3 months. Overall Assessment: Probably benign, BI-RAD 3 Management: Diagnostic Mammogram of the right breast in 3 months. A clinical breast exam by your physician is recommended on an annual basis and results should be correlated with mammographic findings. This exam should not preclude additional follow-up of suspicious palpable abnormalities. Results were given to the patient verbally at the time of exam. [facility], , 10/31/2024 2:13 PM. Electronically signed and approved by: Jessica Kline M.D. Radiologist
== END | disposition home or self-care (01) ==
LOC: RADUSWWP 13:37
PROVIDERS: ATTEND Surgery
DX: N60.09 Solitary cyst of unspecified breast (principal); Z92.0 Personal history of contraception; Z80.3 Family history of malignant neoplasm of breast

== ENCOUNTER 2025-01-25 00:36 | Emergency (ER) | payer OTHER ==
[2025-01-25 00:44] VITALS: RESP 18
[2025-01-25] MEDS: LIDOCAINE 4% PATCH TOPICAL ONE (01:53)
[2025-01-25] MEDS: KETOROLAC 15 MG/ML 1 ML VIAL IM STA (01:54)
[2025-01-25] MEDS: ORPHENADRINE 30 MG/ML 2 ML VIAL IM STA (01:54)
--- NOTE | 2025-01-25 01:56 | ED ---
Back Pain HPI - General Chief Complaint: Back Pain/Injury Stated Complaint: Lower Back Pain Time Seen by Provider: 01/25/25 00:50 Source: patient Limitations: no limitations - History of Present Illness Initial Comments: 39-year-old female presenting with chief complaint of lower back pain. Located on the right lower side. She states that it feels like a pinching pain. Is worse when she bends over. Started today. No injury or trauma. No radiation of pain down the leg. No loss of bowel or bladder control or saddle paresthesia. No fever or chills. No nausea vomiting or abdominal pain. No urinary symptoms. - Related Data Home Medications Medication Instructions Recorded Confirmed HYDROcodone/APAP 10-325MG [[place] 1 tab PO TID PRN 03/05/14 10/10/24 10-325] tiZANidine [Zanaflex] 4 mg PO TID 03/05/14 10/10/24 Aspirin/Acetaminophen/Caffeine 1 tab PO Q6H PRN 08/02/16 10/10/24 [Excedrin Extra Strength Caplet] Ibuprofen [Motrin] 800 mg PO Q6HR PRN 08/02/16 10/10/24 DULoxetine HCL [Cymbalta] 60 mg PO DAILY 10/10/24 10/10/24 Allergies Allergy/AdvReac Type Severity Reaction Status Date / Time prochlorperazine Allergy Intermediate Unknown Verified 01/25/25 00:44 [From Compazine] erythromycin base Allergy Dyspnea Verified 01/25/25 00:44 [From E-Mycin] Penicillins Allergy Nausea & Verified 01/25/25 00:44 Vomiting sumatriptan [From Imitrex] Allergy Rapid Verified 01/25/25 00:44 Heart Rate trazodone Allergy Dyspnea Verified 01/25/25 00:44 prednisone AdvReac Vomiting Verified 01/25/25 00:44 Review of Systems ROS Statement: Those systems with pertinent positive or pertinent negative responses have been documented in the HPI. ROS Other: All systems not noted in ROS Statement are negative. Past Medical History Past Medical History: No Reported History Additional Past Medical History / Comment(s): ovarian cyst, back pain History of Any Multi-Drug Resistant Organisms: None Reported Past Surgical History: Ear Surgery, Tonsillectomy, Tubal Ligation Additional Past Surgical History / Comment(s): rectal surgery, christie knee, Rt shoulder 5 surgeries, CARPAL TUNNEL Past Psychological History: ADD/ADHD, Anxiety, Bipolar, Depression Smoking Status: Current every day smoker, Vaper Past Alcohol Use History: None Reported Past Drug Use History: None Reported General Exam Limitations: no limitations General appearance: alert, in no apparent distress Head exam: Present: atraumatic, normocephalic, normal inspection Eye exam: Present: normal appearance, EOMI Neck exam: Present: normal inspection. Absent: meningismus Respiratory exam: Absent: respiratory distress Cardiovascular Exam: Present: regular rate Back exam: Present: normal inspection, muscle spasm Neurological exam: Present: alert, oriented X3 Psychiatric exam: Present: normal affect, normal mood Skin exam: Present: warm, dry, normal color Course Vital Signs 01/25/25 01/25/25 00:41 04:37 Temperature 97.8 F 98.3 F Pulse Rate 83 67 Respiratory 18 18 Rate Blood Pressure 130/87 117/81 O2 Sat by Pulse 100 98 Oximetry Medical Decision Making - Medical Decision Making Was pt. sent in by a medical professional or institution (Dr. PA, FAMILY SERVICE ASSISTANT, urgent care, hospital, or [facility]...) When possible be specific @ -No Did you speak to anyone other than the patient for history (EMS, parent, family, police, friend...)? What history was obtained from this source @ -No Did you review nursing and triage notes (agree or disagree)? Why? @ -I reviewed and agree with nursing and triage notes Were old charts reviewed (outside hosp., previous admission, EMS record, old EKG, old radiological studies, urgent care reports/EKG's, [facility] records)? Report findings @ -No old charts were reviewed Differential Diagnosis (chest pain, altered mental status, abdominal pain women, abdominal pain men, vaginal bleeding, weakness, fever, dyspnea, syncope, headache, dizziness, GI bleed, back pain, seizure, CVA, palpatations, mental health, musculoskeletal)? @ - MDM Differential Back Pain: Strain, zoster, cauda equina syndrome, epidural abscess, vertebral osteomyelitis, discitis, fracture, subluxation, disc herniation, DJD, spinal stenosis, dissection, AAA, pancreatitis, peptic ulcer disease, pyelonephritis, kidney stone… this is not meant to be an all-inclusive list. EKG interpreted by me (3pts min.). @ -As above X-rays interpreted by me (1pt min.). @ -None done CT interpreted by me (1pt min.). @ -None done U/S interpreted by me (1pt. min.). @ -None done What testing was considered but not performed or refused? (CT, X-rays, U/S, lab s)? Why? @ -None What meds were considered but not given or refused? Why? @ -None Did you discuss the management of the patient with other professionals (professionals i.e. DrThomas, PA, FAMILY SERVICE ASSISTANT, lab, RT, psych nurse, manager social work, spa associate, teacher, technology officer, manager of case)? Give summary @ -No Was smoking cessation discussed for >3mins.? @ -No Was critical care preformed (if so, how long)? @ -No Were there social determinants of health that impacted care today? How? (Homelessness, low income, unemployed, alcoholism, drug addiction, transportation, low edu. Level, literacy, decrease access to med. care, long-term, rehab)? @ -No Was there de-escalation of care discussed even if they declined (Discuss DNR or withdrawal of care, Hospice)? DNR status @ -No What co-morbidities impacted this encounter? (DM, HTN, Smoking, COPD, CAD, Cancer, CVA, ARF, Chemo, Hep., AIDS, mental health diagnosis, sleep apnea, morbid obesity)? @ -None Was patient admitted / discharged? Hospital course, mention meds given and route, prescriptions, significant lab abnormalities, going to OR and other pertinent info. @ -39-year-old female presenting chief complaint of lower back pain. No injury or trauma. No red flag symptoms. Patient reports improvement after pain medication. Follow-up with PCP. Report back to ER with any new or worsening symptoms. Discussed return parameters and answered all questions. Patient conveyed verbal understanding and agreed to the plan. I discussed this case in detail with my attending Dr. Huffman Undiagnosed new problem with uncertain prognosis? @ -No Drug Therapy requiring intensive monitoring for toxicity (Heparin, Nitro, Insulin, Cardizem)? @ -No Were any procedures done? @ -No Diagnosis/symptom? @ -Lower back strain Acute, or Chronic, or Acute on Chronic? @ -Acute Uncomplicated (without systemic symptoms) or Complicated (systemic symptoms)? @ -Uncomplicated Side effects of treatment? @ -No Exacerbation, Progression, or Severe Exacerbation? @ -No Poses a threat to life or bodily function? How? (Chest pain, [place], [place], pneumonia, PE, COPD, DKA, ARF, appy, cholecystitis, CVA, Diverticulitis, Homicidal, Suicidal, threat to staff... and all critical care pts) @ -Unlikely Disposition Clinical Impression: Strain of lumbar region Disposition: HOME SELF-CARE Condition: Good Instructions (If sedation given, give patient instructions): Acute Low Back Pain (ED) Additional Instructions: Follow-up with PCP. Report back to ER with any new or worsening symptoms. Is patient prescribed a controlled substance at d/c from ED?: No Referrals: Raffaele Grande DO [Primary Care Provider] - 1-2 days Time of Disposition: 04:26
[2025-01-25] MEDS: DEXAMETHASONE SOD PHOSPHATE 10 MG/ML 1 ML VIAL IM STA (03:13)
[2025-01-25 04:42] VITALS: BP 117/81; PULSE 67; TEMP 98.3
== END 2025-01-25 04:37 | disposition home or self-care (01) ==
LOC: EC 00:36
DX: S39.012A Strain of muscle, fascia and tendon of lower back, initial encounter (principal); F17.290 Nicotine dependence, other tobacco product, uncomplicated; Z88.0 Allergy status to penicillin; Z88.1 Allergy status to other antibiotic agents; Z88.3 Allergy status to other anti-infective agents; Z88.8 Allergy status to other drugs, medicaments and biological substances; W23.0XXA Caught, crushed, jammed, or pinched between moving objects, initial encounter
CPT/HCPCS: 99283; 96372; J1100; J2360; J1885

== ENCOUNTER 2025-03-15 16:57 | Emergency (ER) | payer SELFPAY ==
[2025-03-15 17:02] VITALS: BP 106/74; PULSE 89; RESP 16; TEMP 97.8
--- NOTE | 2025-03-15 17:26 | ED ---
Dizziness HPI - General Chief Complaint: Dizziness Stated Complaint: Body aches/Abd pain/cold Sweats Time Seen by Provider: 03/15/25 17:09 Source: patient, RN notes reviewed, old records reviewed Mode of arrival: ambulatory Limitations: no limitations - History of Present Illness Initial Comments: This is a 39-year-old female to the ER for evaluation of dizziness runny nose ear pain cough congestion dizziness and off-balance when the attacks happen definitely with position change. No current headaches. No travel or sick contacts no prior history of traumatic injury, patient has not felt feverish she states she does not get fevers has been feeling sick and on the weather for a few days now. Mild nausea no active vomiting denies chance of . Patient does have history of smoking but no medical history takes no medications took NyQuil for symptoms which helped MD Complaint: dizziness -: days(s) Timing: gradual onset, intermittent Description: "room spinning", off-balance History of Same: No History of Trauma: No Severity: mild Improves With: remaining still Worsens With: movement Associated Symptoms: denies other symptoms - Related Data Home Medications Medication Instructions Recorded Confirmed HYDROcodone/APAP 10-325MG [[place] 1 tab PO TID PRN 03/05/14 10/10/24 10-325] tiZANidine [Zanaflex] 4 mg PO TID 03/05/14 10/10/24 Aspirin/Acetaminophen/Caffeine 1 tab PO Q6H PRN 08/02/16 10/10/24 [Excedrin Extra Strength Caplet] Ibuprofen [Motrin] 800 mg PO Q6HR PRN 08/02/16 10/10/24 DULoxetine HCL [Cymbalta] 60 mg PO DAILY 10/10/24 10/10/24 Previous Rx's Medication Instructions Recorded Ketorolac [Toradol] 10 mg PO Q8HR #15 tab 03/03/25 Loratadine-Pseudoeph 10-240 mg 1 tab PO DAILY #14 tab 03/15/25 [Claritin-D 24 Hour] Meclizine [Antivert] 25 mg PO TID #30 tab 03/15/25 Ondansetron Odt [Zofran ODT] 4 mg PO Q8HR PRN #30 tablet 03/15/25 Sulfamethox-Tmp 800-160Mg [Bactrim 1 tab PO Q12HR #20 tab 03/15/25 DS 800-160 mg] Allergies Allergy/AdvReac Type Severity Reaction Status Date / Time prochlorperazine Allergy Intermediate Unknown Verified 03/03/25 22:31 [From Compazine] erythromycin base Allergy Dyspnea Verified 03/03/25 22:31 [From E-Mycin] Penicillins Allergy Nausea & Verified 03/03/25 22:31 Vomiting sumatriptan [From Imitrex] Allergy Rapid Verified 03/03/25 22:31 Heart Rate trazodone Allergy Dyspnea Verified 03/03/25 22:31 prednisone AdvReac Vomiting Verified 03/03/25 22:31 Review of Systems ROS Statement: Those systems with pertinent positive or pertinent negative responses have been documented in the HPI. ROS Other: All systems not noted in ROS Statement are negative. Past Medical History Past Medical History: No Reported History Additional Past Medical History / Comment(s): ovarian cyst, back pain History of Any Multi-Drug Resistant Organisms: None Reported Past Surgical History: Ear Surgery, Orthopedic Surgery, Tonsillectomy, Tubal Ligation Additional Past Surgical History / Comment(s): rectal surgery, christie knee, Rt shoulder 5 surgeries, CARPAL TUNNEL Past Psychological History: ADD/ADHD, Anxiety, Bipolar, Depression Smoking Status: Current every day smoker, Vaper Past Alcohol Use History: None Reported Past Drug Use History: None Reported General Exam Limitations: no limitations General appearance: alert, in no apparent distress Head exam: Present: atraumatic, normocephalic, normal inspection Eye exam: Present: normal appearance, PERRL, EOMI. Absent: scleral icterus, conjunctival injection, periorbital swelling ENT exam: Present: normal exam, mucous membranes moist Neck exam: Present: normal inspection. Absent: tenderness, meningismus, lymphadenopathy Respiratory exam: Present: normal lung sounds bilaterally. Absent: respiratory distress, wheezes, rales, rhonchi, stridor Cardiovascular Exam: Present: regular rate, normal rhythm, normal heart sounds. Absent: systolic murmur, diastolic murmur, rubs, gallop, clicks GI/Abdominal exam: Present: soft, normal bowel sounds. Absent: distended, tenderness, guarding, rebound, rigid Extremities exam: Present: normal inspection, full ROM, normal capillary refill. Absent: tenderness, pedal edema, joint swelling, calf tenderness Back exam: Present: normal inspection Neurological exam: Present: alert, oriented X3, CN II-XII intact Psychiatric exam: Present: normal affect, normal mood Skin exam: Present: warm, dry, intact, normal color. Absent: rash Course Vital Signs 03/15/25 16:58 Temperature 97.8 F Pulse Rate 89 Respiratory 16 Rate Blood Pressure 106/74 O2 Sat by Pulse 98 Oximetry - Reevaluation(s) Reevaluation #1: 03/15/25 17:24 Medical records reviewed Reevaluation #2: 03/15/25 17:24 Patient's symptoms improving able to ambulate without difficulty Reevaluation #3: 03/15/25 17:24 Patient informed of results questions answered Reevaluation #4: Was pt. sent in by a medical professional or institution (YOMAIRA Peterson, [employer]ANGE PICKING SUPERVISOR, urgent care, hospital, or halfway...) When possible be specific @ -no Did you speak to anyone other than the patient for history (EMS, parent, family, police, friend...)? What history was obtained from this source @ -no Did you review nursing and triage notes (agree or disagree)? Why? @ -agree Are old charts reviewed (outside hosp., previous admission, EMS record, old EKG, old radiological studies, urgent care reports/EKG's, halfway records)? Report findings @ -yes Differential Diagnosis (chest pain, altered mental status, abdominal pain women, abdominal pain men, vaginal bleeding, weakness, fever, dyspnea, syncope, headache, dizziness, GI bleed, back pain, seizure, CVA, palpatations, mental health, musculoskeletal)? @ -prior EKG interpreted by me (3pts min.). @ -yes X-rays interpreted by me (1pt min.). @ -yes negative for acute disease CT interpreted by me (1pt min.). @ -no U/S interpreted by me (1pt. min.). @ -no What testing was considered but not performed or refused? (CT, X-rays, U/S, labs)? Why? @ -none What meds were considered but not given or refused? Why? @ -none Did you discuss the management of the patient with other professionals (professionals i.e. YOMAIRA Peterson, [employer]ANGE PICKING SUPERVISOR, lab, RT, psych nurse, social media marketing manager, shoe ironer, teacher, chief school finance officer, patient case manager)? Give summary @ -no Was smoking cessation discussed for >3mins.? @ -no Was critical care preformed (if so, how long)? @ -no Were there social determinants of health that impacted care today? How? (Homelessness, low income, unemployed, alcoholism, drug addiction, transportation, low edu. Level, literacy, decrease access to med. care, [facility], rehab)? @ -none Was there de-escalation of care discussed even if they declined (Discuss DNR or withdrawal of care, Hospice)? DNR status @ -no What co-morbidities impacted this encounter? (DM, HTN, Smoking, COPD, CAD, Cancer, CVA, ARF, Chemo, Hep., AIDS, mental health diagnosis, sleep apnea, morbid obesity)? @ -none Was patient admitted / discharged? Hospital course, mention meds given and route, prescriptions, significant lab abnormalities, going to OR and other pertinent info. @ - Undiagnosed new problem with uncertain prognosis? @ -no Drug Therapy requiring intensive monitoring for toxicity (Heparin, Nitro, Insulin, Cardizem)? @ -no Were any procedures done? @ -no Diagnosis/symptom? @ - Acute, or Chronic, or Acute on Chronic? @ -Acute Uncomplicated (without systemic symptoms) or Complicated (systemic symptoms)? @ -Complicated Side effects of treatment? @ -no Exacerbation, Progression, or Severe Exacerbation? @ -exacerbation Poses a threat to life or bodily function? How? (Chest pain, [place], [place], pneumonia, PE, COPD, DKA, ARF, appy, cholecystitis, CVA, Diverticulitis, Homicidal, Suicidal, threat to staff... and all critical care pts) @ -yes Reevaluation #5: Differential Dizziness: Benign paroxysmal positional Vertigo, Meniere's disease, otitis media, acoustic neuroma, vertebrobasilar insufficiency, cerebellar stroke, encephalitis, hypovolemic, arrhythmia, coronary artery syndrome, anemia, this is not meant to be an all-inclusive list Medical Decision Making - Medical Decision Making 39 female to ER for evaluation of cough congestion runny nose ear pain and dizziness. Patient's symptoms are improved here in the ER placing her back can be discharged home Disposition Clinical Impression: Otitis media, left, Vertigo, Dizziness Disposition: HOME SELF-CARE Condition: Good Instructions (If sedation given, give patient instructions): Ear Infection (ED), Vertigo (ED) Prescriptions: Meclizine [Antivert] 25 mg PO TID #30 tab Sulfamethox-Tmp 800-160Mg [Bactrim DS 800-160 mg] 1 tab PO Q12HR #20 tab Loratadine-Pseudoeph 10-240 mg [Claritin-D 24 Hour] 1 tab PO DAILY #14 tab Ondansetron Odt [Zofran ODT] 4 mg PO Q8HR PRN #30 tablet PRN Reason: nausea/vomiting Is patient prescribed a controlled substance at d/c from ED?: No Referrals: Raffaele Grande DO [Primary Care Provider] - 1-2 days Time of Disposition: 17:30
[2025-03-15] MEDS: LORATADINE-PSEUDOEPH 5-120 MG 1 EACH TAB.ER.12H PO STA (17:58)
[2025-03-15] MEDS: SULFAMETHOX-TMP 800-160MG 1 EACH TAB PO STA (17:58)
[2025-03-15] MEDS: ONDANSETRON ODT 4 MG TAB PO STA (17:59)
[2025-03-15] MEDS: MECLIZINE 12.5 MG TAB PO STA (17:59)
== END 2025-03-15 18:15 | disposition home or self-care (01) ==
LOC: EC 16:57
DX: H66.92 Otitis media, unspecified, left ear (principal); R42 Dizziness and giddiness; F17.290 Nicotine dependence, other tobacco product, uncomplicated; Z88.0 Allergy status to penicillin; Z88.1 Allergy status to other antibiotic agents; Z88.8 Allergy status to other drugs, medicaments and biological substances
CPT/HCPCS: 99283

== ENCOUNTER 2025-03-19 02:50 | Emergency (ER) | payer OTHER ==
[2025-03-19] MEDS: SODIUM CHLORIDE 0.9% 1,000 ML IV STA (04:08)
[2025-03-19] MEDS: MECLIZINE 12.5 MG TAB PO STA (04:08)
[2025-03-19] MEDS: ONDANSETRON 4 MG/2 ML VIAL IVP STA ×2 (04:08→05:10)
[2025-03-19 04:10] LABS: Basophils # (A) 0.01 10*3/uL (0.00-0.10); Basophils % (A) 0.2 %; HCT 44.6 % (37.2-46.3); HGB 15.4 g/dL (12.0-15.0); Lymphocytes # (A) 1.28 10*3/uL (0.90-5.00); Lymphocytes % (A) 30.5 %; MCH 28.6 pg (27.0-32.0); MCHC 34.5 g/dL (32.0-37.0); MCV 82.9 fL (80.0-97.0); Mean Platelet Volume 9.6 fL (9.5-12.2); Monocytes # (A) 0.34 10*3/uL (0.20-1.00); Monocytes % (A) 8.1 %; Neutrophils # (A) 2.54 10*3/uL (1.80-7.70); Neutrophils % (A) 60.7 %; Platelet Count 226 10*3/uL (140-440); RBC 5.38 10*6/uL (4.10-5.20); RDW 13.9 % (11.5-14.5); WBC 4.19 10*3/uL (4.50-10.00)
[2025-03-19 04:31] LABS: ALT 25 U/L (4-34); AST 31 U/L (14-36); African American GFR (CKD) 78 (>60 ml/min/1.73 sqM); Albumin 4.7 g/dL (3.5-5.0); Alkaline Phosphatase 92 U/L (38-126); Anion Gap 12 mmol/L; Blood Urea Nitrogen 13 mg/dL (7-17); Calcium 9.8 mg/dL (8.4-10.2); Carbon Dioxide 23 mmol/L (22-30); Chloride 102 mmol/L (98-107); Glucose 98 mg/dL (74-99); Non-African American GFR(CKD) 68 (>60 ml/min/1.73 sqM); Potassium 4.5 mmol/L (3.5-5.1); Sodium 137 mmol/L (137-145); Total Bilirubin 0.5 mg/dL (0.2-1.3); Total Protein 7.6 g/dL (6.3-8.2)
[2025-03-19 04:44] LABS: Appearance,Urine Clear (Clear); Bilirubin,Urine Negative (Negative); Blood,Urine Negative (Negative); Color,Urine Yellow; Glucose,Urine (UA) Negative (Negative); Ketones,Urine 1+ (Negative); Leukocyte Esterase,Urine Negative (Negative); Nitrite,Urine Negative (Negative); PH, Urine 6.5 (5.0-8.0); Protein,Urine Trace (Negative); Specific Gravity,Urine 1.025 (1.001-1.035)
[2025-03-19] MEDS ORDERED: diphenhydrAMINE 50 MG/ML 1 ML VIAL IVP STA (05:31)
[2025-03-19] MEDS: METOCLOPRAMIDE 5 MG/ML 2 ML VIAL IVP STA (06:29)
[2025-03-19] MEDS: diphenhydrAMINE 50 MG/ML 1 ML VIAL IVP STA (06:29)
[2025-03-19] MEDS: DEXAMETHASONE SOD PHOSPHATE 10 MG/ML 1 ML VIAL IVP STA (06:30)
--- NOTE | 2025-03-19 06:37 | ED ---
General Adult HPI - General Chief complaint: Nausea/Vomiting/Diarrhea Stated complaint: Vomiting Time Seen by Provider: 03/19/25 03:46 Source: patient Mode of arrival: ambulatory Limitations: no limitations - History of Present Illness Initial comments: Patient is a previously healthy 39-year-old female presenting today for dizziness nausea and vomiting. Patient states that she was here on Monday for similar symptoms and was diagnosed with an ear infection. She was discharged home on Bactrim. She has been able to take her antibiotics as prescribed. Shortly after returning home however her dizziness returned. It is described as the room is spinning and worsens with head movements. She tried home meclizine and Zofran without relief of symptoms. States has had multiple episodes of nonbloody nonbilious emesis. No diarrhea, melena or hematochezia. Denies abdominal pain. Denies chest pain or shortness of breath. Denies fevers or chills. Denies dysuria urinary frequency or hematuria. Denies headache, changes in vision, focal numbness or weakness, slurred speech. Also notes that she noted a blotchy erythematous rash on Monday, the day before she presented to the hospital earlier this week. Denies new exposures, laundry detergents, known allergens. - Related Data Home Medications Medication Instructions Recorded Confirmed HYDROcodone/APAP 10-325MG [[place] 1 tab PO TID PRN 03/05/14 10/10/24 10-325] tiZANidine [Zanaflex] 4 mg PO TID 03/05/14 10/10/24 Aspirin/Acetaminophen/Caffeine 1 tab PO Q6H PRN 08/02/16 10/10/24 [Excedrin Extra Strength Caplet] Ibuprofen [Motrin] 800 mg PO Q6HR PRN 08/02/16 10/10/24 DULoxetine HCL [Cymbalta] 60 mg PO DAILY 10/10/24 10/10/24 Previous Rx's Medication Instructions Recorded Ketorolac [Toradol] 10 mg PO Q8HR #15 tab 03/03/25 Loratadine-Pseudoeph 10-240 mg 1 tab PO DAILY #14 tab 03/15/25 [Claritin-D 24 Hour] Meclizine [Antivert] 25 mg PO TID #30 tab 03/15/25 Ondansetron Odt [Zofran ODT] 4 mg PO Q8HR PRN #30 tablet 03/15/25 Sulfamethox-Tmp 800-160Mg [Bactrim 1 tab PO Q12HR #20 tab 03/15/25 DS 800-160 mg] Metoclopramide [Reglan] 5 mg PO Q8HR PRN 3 Days #10 tab 03/19/25 Allergies Allergy/AdvReac Type Severity Reaction Status Date / Time prochlorperazine Allergy Intermediate Unknown Verified 03/03/25 22:31 [From Compazine] erythromycin base Allergy Dyspnea Verified 03/03/25 22:31 [From E-Mycin] Penicillins Allergy Nausea & Verified 03/03/25 22:31 Vomiting sumatriptan [From Imitrex] Allergy Rapid Verified 03/03/25 22:31 Heart Rate trazodone Allergy Dyspnea Verified 03/03/25 22:31 prednisone AdvReac Vomiting Verified 03/03/25 22:31 Review of Systems ROS Statement: Those systems with pertinent positive or pertinent negative responses have been documented in the HPI. ROS Other: All systems not noted in ROS Statement are negative. Past Medical History Past Medical History: No Reported History Additional Past Medical History / Comment(s): ovarian cyst, back pain History of Any Multi-Drug Resistant Organisms: None Reported Past Surgical History: Ear Surgery, Orthopedic Surgery, Tonsillectomy, Tubal Ligation Additional Past Surgical History / Comment(s): rectal surgery, christie knee, Rt brandon ulder 5 surgeries, CARPAL TUNNEL Past Psychological History: ADD/ADHD, Anxiety, Bipolar, Depression Smoking Status: Current every day smoker, Vaper Past Alcohol Use History: None Reported Past Drug Use History: None Reported General Exam - General Exam Comments Initial Comments: PE: CONSTITUTIONAL: No apparent distress, well appearing SKIN: Warm, dry, no jaundice, hives or petechiae EYES: Pupils are equally round, extraocular movements intact without nystagmus, clear conjunctiva, non-icteric sclera HENT: Normocephalic, atraumatic, moist mucus membranes, oropharynx clear without exudates, bilateral TMs nonerythematous though middle effusions noted bilaterally NECK: , Full range of motion, normal appearance PULMONARY: Clear to auscultation without wheezes, rhonchi, or rales, normal excursion, no accessory muscle use and no stridor CARDIOVASCULAR: Regular rate, rhythm, normal S1 and S2. No appreciated murmurs, rubs or gallops. Strong radial pulses with intact distal perfusion. No lower extremity edema GASTROINTESTINAL: Soft, active bowel sounds throughout, non-tender, non- distended, no palpable masses, no rebound or guarding. No hepatosplenomegaly MUSCULOSKELETAL: Extremities have no gross deformity, no edema, redness, or swelling. No calf swelling NEUROLOGIC:_a/o x 3, GCS 15, normal mentation and speech. Moves all extremities x 4 without motor or sensory deficit, cranial nerves II through XII intact, normal finger to nose testing PSYCHIATRIC:_normal mood and affect, thought process is clear and linear Limitations: no limitations Course Vital Signs 03/19/25 03/19/25 02:58 06:43 Temperature 99.0 F 99.4 F Pulse Rate 88 78 Respiratory 16 20 Rate Blood Pressure 106/70 110/78 O2 Sat by Pulse 95 97 Oximetry EKG Findings - EKG Comments: EKG Findings:: Sinus rhythm, rate 76 beats minute intervals within acceptable limits, no significant ST elevations or depressions, no arrhythmia Medical Decision Making - Medical Decision Making Was pt. sent in by a medical professional or institution (, PA, CONTINUOUS PROCESS COFFEE ROASTER, urgent care, hospital, or assisted...) When possible be specific @ -No Did you speak to anyone other than the patient for history (EMS, parent, family, police, friend...)? What history was obtained from this source @ -No Did you review nursing and triage notes (agree or disagree)? Why? @ -I reviewed nursing and triage notes Were old charts reviewed (outside hosp., previous admission, EMS record, old EKG, old radiological studies, urgent care reports/EKG's, assisted records)? Report findings @ -Medical records reviewed-Reviewed ER visit note from 03/15/2025, patient had presented for dizziness, runny nose and ear pain. Patient was discharged after symptomatic improvement with prescriptions for Antivert, Bactrim, Claritin and Zofran Differential Diagnosis (chest pain, altered mental status, abdominal pain women, abdominal pain men, vaginal bleeding, weakness, fever, dyspnea, syncope, headache, dizziness, GI bleed, back pain, seizure, CVA, palpatations, mental health, musculoskeletal)? @Differential Dizziness: Benign paroxysmal positional Vertigo, Meniere's disease, otitis media, acoustic neuroma, vertebrobasilar insufficiency, cerebellar stroke, encephalitis, hypovolemic, arrhythmia, coronary artery syndrome, anemia, this is not meant to be an all-inclusive list EKG interpreted by me (3pts min.). @ -As above X-rays interpreted by me (1pt min.). @ -None done CT interpreted by me (1pt min.). @ -None done U/S interpreted by me (1pt. min.). @ -None done What testing was considered but not performed or refused? (CT, X-rays, U/S, labs)? Why? @ CT brain?CTA head/neck considered however history and exam consistent with peripheral cause if dizziness What meds were considered but not given or refused? Why? @ -None Did you discuss the management of the patient with other professionals (professionals i.e. , PA, CONTINUOUS PROCESS COFFEE ROASTER, lab, RT, psych nurse, social work administrator, vet tech, te acher, chief technical officer, case supervisor)? Give summary @ -No Was smoking cessation discussed for >3mins.? @ -No Was critical care preformed (if so, how long)? @ -No Were there social determinants of health that impacted care today? How? (Homelessness, low income, unemployed, alcoholism, drug addiction, transportation, low edu. Level, literacy, decrease access to med. care, fdc, rehab)? @ -No Was there de-escalation of care discussed even if they declined (Discuss DNR or withdrawal of care, Hospice)? @ -No What co-morbidities impacted this encounter? (DM, HTN, Smoking, COPD, CAD, Cancer, CVA, ARF, Chemo, Hep., AIDS, mental health diagnosis, sleep apnea, morbid obesity)? @ -None Was patient admitted / discharged? Hospital course, mention meds given and route, prescriptions, significant lab abnormalities, going to OR and other pertinent info. @Discharged-this is a pleasant 39-year-old female presenting for dizziness nausea and vomiting. Patient well-appearing on assessment, vital signs stable. Pt's description of symptoms and exam consistent with peripheral cause of dizziness, therefor I do not feel further imaging of the head/neck are indicated at this point. Obtain EKG and basic labs.Labs are significant for mild leukopenia, white blood cell count 4.19, and hemoglobin of 15.4 which likely reflects hemoconcentration secondary to dehydration from nausea and vomiting, CMP was unremarkable, urinalysis with 1+ ketones and trace protein. Patient symptoms improved with IV fluids, Zofran, Reglan, Antivert Benadryl, Valium. She was also given Decadron for her rash which appeared to be consistent with contact dermantitis vs viral exanthem. On reassessment patient was able to tole rate p.o. intake. Discussed plan for discharge home as well as strict return precautions. Patient verbalized understanding and was discharged in good condition. In my medical judgment there is currently no evidence of an immediate life- threatening or surgical condition. Discharge is therefore indicated at this time. Discharge treatment instructions, follow up instructions, and appropriate e mergency department return precautions were discussed with the patient and/or medical decision maker. Patient and/or medical decision maker expressed understanding of and agreed with the treatment plan, follow up instructions, and emergency department return precaution. All patient's and/or medical decision maker's questions were answered. The patient was instructed to return to the ED for any changes in symptoms, persistent symptoms, inability to obtain proper follow-up or for any further concerns. Patient received verbal and written instructions for this condition. Undiagnosed new problem with uncertain prognosis? @ -No Drug Therapy requiring intensive monitoring for toxicity (Heparin, Nitro, Insulin, Cardizem)? @ -No Were any procedures done? @ -No Diagnosis/symptom? @Dizziness, nausea vomiting, rash Acute, or Chronic, or Acute on Chronic? @Acute Uncomplicated (without systemic symptoms) or Complicated (systemic symptoms)? @Complicated Side effects of treatment? @ -No Exacerbation, Progression, or Severe Exacerbation? @ -No Poses a threat to life or bodily function? How? (Chest pain, [place], [place], pneumonia, PE, COPD, DKA, ARF, appy, cholecystitis, CVA, Diverticulitis, Homicidal, S uicidal, threat to staff... and all critical care pts) @ -No - Lab Data Result diagrams: 03/19/25 03:51 03/19/25 03:51 Lab Results 03/19/25 03/19/25 03/19/25 Range/Units 03:51 03:51 04:25 WBC 4.19 L (4.50-10.00) 10*3/uL RBC 5.38 H (4.10-5.20) 10*6/uL Hgb 15.4 H (12.0-15.0) g/dL Hct 44.6 (37.2-46.3) % MCV 82.9 (80.0-97.0) fL MCH 28.6 (27.0-32.0) pg MCHC 34.5 (32.0-37.0) g/dL Plt Count 226 (140-440) 10*3/uL MPV 9.6 (9.5-12.2) fL Immature Gran % (Auto) 0.5 % Neutrophils % 60.7 % Lymphocytes % 30.5 % Monocytes % 8.1 % Eosinophils % 0.0 % Basophils % 0.2 % Immature Gran # 0.02 (0.00-0.04) 10*3/uL Neutrophils # 2.54 (1.80-7.70) 10*3/uL Lymphocytes # 1.28 (0.90-5.00) 10*3/uL Monocytes # 0.34 (0.20-1.00) 10*3/uL Eosinophils # 0.00 L (0.04-0.35) 10*3/uL Basophils # 0.01 (0.00-0.10) 10*3/uL Sodium 137 (137-145) mmol/L Potassium 4.5 (3.5-5.1) mmol/L Chloride 102 (98-107) mmol/L Carbon Dioxide 23 (22-30) mmol/L Anion Gap 12 mmol/L BUN 13 (7-17) mg/dL Creatinine 1.04 (0.52-1.04) mg/dL Est GFR (CKD-EPI)AfAm 78 (>60 ml/min/1.73 sqM) Est GFR (CKD-EPI)NonAf 68 (>60 ml/min/1.73 sqM) Glucose 98 (74-99) mg/dL Calcium 9.8 (8.4-10.2) mg/dL Total Bilirubin 0.5 (0.2-1.3) mg/dL AST 31 (14-36) U/L ALT 25 (4-34) U/L Alkaline Phosphatase 92 (38-126) U/L Total Protein 7.6 (6.3-8.2) g/dL Albumin 4.7 (3.5-5.0) g/dL Urine Color Yellow Urine Appearance Clear (Clear) Urine pH 6.5 (5.0-8.0) Ur Specific [place] 1.025 (1.001-1.035) Urine Protein Trace H (Negative) Urine Glucose (UA) Negative (Negative) Urine Ketones 1+ H (Negative) Urine Blood Negative (Negative) Urine Nitrite Negative (Negative) Urine Bilirubin Negative (Negative) Urine Urobilinogen 4.0 (<2.0) mg/dL Ur Leukocyte Esterase Negative (Negative) Urine HCG, Qual (Not Detectd) 03/19/25 Range/Units 04:25 WBC (4.50-10.00) 10*3/uL RBC (4.10-5.20) 10*6/uL Hgb (12.0-15.0) g/dL Hct (37.2-46.3) % MCV (80.0-97.0) fL MCH (27.0-32.0) pg MCHC (32.0-37.0) g/dL Plt Count (140-440) 10*3/uL MPV (9.5-12.2) fL Immature Gran % (Auto) % Neutrophils % % Lymphocytes % % Monocytes % % Eosinophils % % Basophils % % Immature Gran # (0.00-0.04) 10*3/uL Neutrophils # (1.80-7.70) 10*3/uL Lymphocytes # (0.90-5.00) 10*3/uL Monocytes # (0.20-1.00) 10*3/uL Eosinophils # (0.04-0.35) 10*3/uL Basophils # (0.00-0.10) 10*3/uL Sodium (137-145) mmol/L Potassium (3.5-5.1) mmol/L Chloride (98-107) mmol/L Carbon Dioxide (22-30) mmol/L Anion Gap mmol/L BUN (7-17) mg/dL Creatinine (0.52-1.04) mg/dL Est GFR (CKD-EPI)AfAm (>60 ml/min/1.73 sqM) Est GFR (CKD-EPI)NonAf (>60 ml/min/1.73 sqM) Glucose (74-99) mg/dL Calcium (8.4-10.2) mg/dL Total Bilirubin (0.2-1.3) mg/dL AST (14-36) U/L ALT (4-34) U/L Alkaline Phosphatase (38-126) U/L Total Protein (6.3-8.2) g/dL Albumin (3.5-5.0) g/dL Urine Color Urine Appearance (Clear) Urine pH (5.0-8.0) Ur Specific [place] (1.001-1.035) Urine Protein (Negative) Urine Glucose (UA) (Negative) Urine Ketones (Negative) Urine Blood (Negative) Urine Nitrite (Negative) Urine Bilirubin (Negative) Urine Urobilinogen (<2.0) mg/dL Ur Leukocyte Esterase (Negative) Urine HCG, Qual Not Detected (Not Detectd) Disposition Clinical Impression: Vertigo Disposition: HOME SELF-CARE Condition: Good Instructions (If sedation given, give patient instructions): Vertigo (ED) Additional Instructions: Every disease is a spectrum and a small chance still exists that a serious condition could develop, for this reason, please monitor yourself closely for new, changing or worsening symptoms, symptoms that persist beyond [48 hours], [fever], inability to tolerate/keep down fluids or your medications, inability to follow up with outpatient providers as instructed and should you experience these symptoms or should you have any further concerns for your wellbeing please return to the ED or call 911 immediately. Additionally please monitor for strokelike symptoms such as severe headache, changes in vision, numbness, weakness experienced symptoms return to the ER immediately. PLEASE call your primary care physician as soon as possible to arrange / discuss plan for followup appointment. Appointment in the next 1-3 days is strongly encouraged if possible. PLEASE let us know here before you leave if there is anything further we can do to be of any assistance. Take care and feel Better! Prescriptions: Metoclopramide [Reglan] 5 mg PO Q8HR PRN 3 Days #10 tab PRN Reason: Nausea Is patient prescribed a controlled substance at d/c from ED?: No Referrals: Raffaele Grande DO [Primary Care Provider] - 1-2 days
[2025-03-19 06:44] VITALS: BP 110/78; PULSE 78; RESP 20; TEMP 99.4
== END 2025-03-19 06:43 | disposition home or self-care (01) ==
LOC: EC 02:50
DX: R11.2 Nausea with vomiting, unspecified (principal); R42 Dizziness and giddiness; R21 Rash and other nonspecific skin eruption; F17.290 Nicotine dependence, other tobacco product, uncomplicated; Z88.0 Allergy status to penicillin; Z88.1 Allergy status to other antibiotic agents; Z88.8 Allergy status to other drugs, medicaments and biological substances
CPT/HCPCS: 36415; 93005; 80053; 85025; 81003; 81025; 99284; 96374; 96375 ×4; 96376; 96361; J1200; J1100; J2765; J3360; J2405